=== PATIENT | male | born 1965 | race Caucasian/White ===

== ENCOUNTER 2021-04-04 10:00 | Outpatient (CLI) | payer OTHER, SELFPAY ==
[~2021-04-04] VITALS: Ht 175.3 cm; Wt 113.4 kg
[2021-04-05 06:57] VITALS: BP_SYST 142
== END 2021-04-04 11:00 | disposition home or self-care (01) ==
LOC: SLB 10:00 → SMU 04-05 06:00 → SDS 04-05 06:00 → EDSTATUS 04-05 07:30 → SMU 04-05 23:32 → SDS 04-05 23:32
PROVIDERS: ATTEND Otolaryngology
DX: J32.8 Other chronic sinusitis (principal); Z53.8 Procedure and treatment not carried out for other reasons
CPT/HCPCS: 36415

== ENCOUNTER 2021-05-31 07:48 | Day surgery (SDC) | payer OTHER ==
[~2021-05-31] VITALS: Ht 175.3 cm; Wt 104.3 kg
[2021-05-31] MEDS ORDERED: ONDANSETRON HCL 4 MG/2 ML VIAL IVP PRN (08:45)
[2021-05-31] MEDS ORDERED: fentaNYL CITRATE/PF 100 MCG/2 ML AMP IVP PRN ×2 (08:45)
[2021-05-31] MEDS ORDERED: METOCLOPRAMIDE HCL 10 MG/2 ML VIAL IVP PRN (08:45)
[2021-05-31] MEDS ORDERED: ACETAMINOPHEN I.V. 1000 MG 100 ML IV ONE (11:01)
[2021-05-31] MEDS ORDERED: GLYCOPYRROLATE 0.2 MG/ML VIAL ONE (12:40)
[2021-05-31] MEDS ORDERED: ROCURONIUM BROMIDE 10 MG/ML (ZEMURON) ONE (12:40)
[2021-05-31] MEDS ORDERED: PROPOFOL 200MG/ 20ML VIAL (DIPRIVAN) IV ONE (12:40)
[2021-05-31] MEDS ORDERED: MIDAZOLAM HCL 5 MG/ML VIAL (VERSED) IV ONE (12:40)
[2021-05-31] MEDS ORDERED: SEVOFLURANE 15 MIN GAS INH ONE (12:40)
[2021-05-31] MEDS ORDERED: DEXAMETHASONE SOD PHOSPHATE 4 MG/ML VIAL ONE (12:40)
[2021-05-31] MEDS ORDERED: WATER FOR IRRIGATION,STERILE 1,000 ML IRRIG.SOLN IR ONE (12:40)
[2021-05-31] MEDS ORDERED: NS IRRIG SOLN 1000 ML IR ONE (12:40)
[2021-05-31] MEDS ORDERED: LIDOCAINE/EPI 1% 1:100000 20 ML VIAL INJ ONE (12:40)
[2021-05-31] MEDS ORDERED: NS 1000 ML IV.SOLN IV ONE (12:40)
[2021-05-31] MEDS ORDERED: PHENYLEPHRINE HCL 10 MG/ML VIAL (NEOSYNEPHRINE) ONE (12:40)
[2021-05-31] MEDS ORDERED: fentaNYL CITRATE/PF 100 MCG/2 ML AMP ONE ×2 (12:40→13:42)
[2021-05-31] MEDS ORDERED: ALBUTEROL SULFATE 0.083% 2.5 MG/3 ML VIAL.NEB INH ONE ×2 (13:05→13:15)
[2021-05-31] MEDS ORDERED: MIDAZOLAM HCL 2 MG/2 ML VIAL (VERSED) ONE (13:54)
[2021-05-31] MEDS ORDERED: hydrALAZINE HCL 20 MG/ML VIAL ONE (14:35)
[2021-05-31] MEDS: fentaNYL CITRATE/PF 100 MCG/2 ML AMP ONE ×2 (14:35→14:40)
[2021-05-31 15:39] VITALS: BP_SYST 159
== END 2021-05-31 16:00 | disposition home or self-care (01) ==
LOC: SDS 07:48 → SMU 07:56 → SDS 16:00
PROVIDERS: ATTEND Otolaryngology
DX: J32.8 Other chronic sinusitis (principal); J33.9 Nasal polyp, unspecified; J45.909 Unspecified asthma, uncomplicated; Z88.1 Allergy status to other antibiotic agents; Z79.899 Other long term (current) drug therapy; Z20.822 Contact with and (suspected) exposure to COVID-19
CPT/HCPCS: 31257; 31267; 31296; 36415; 87426; 88305; 94640; C1726; J0131; J1100; J2250; J2370; J2704; J3010; J3465; J3490; J7030; J7613; J0360